=== PATIENT | male | born 1965 | race Caucasian/White ===

== ENCOUNTER 2018-06-23 16:00 | Emergency (ER) | payer BC ==
[~2018-06-23] VITALS: Ht 162.6 cm; Wt 119.7 kg
[2018-06-23 16:08] VITALS: BP 151/78
[2018-06-23] MEDS ORDERED: DIPHTH,PERTUSS(ACELL),TET TOX 0.5 ML DISP.SYRIN. VAX IM ONE (16:15)
--- NOTE | 2018-06-23 16:48 | RAD ---
Left index finger 3 views. HISTORY: Nail through second finger 3 views were taken of the left index finger. There is a nail through the lateral aspect of the proximal phalanx of the index finger. There is a longitudinal fracture involving the lateral cortex of the proximal phalanx of the index finger. IMPRESSION: 1. Fracture proximal phalanx left index finger. Electronically signed by: Phu Mckenzie MD (06/23/2018 4:45 PM) [facility]
--- NOTE | 2018-06-23 17:28 | PHYS DOC ---
Past History Past Medical History: GERD, High Cholesterol, Hypertension Past Surgical History: No Surgical History Alcohol Use: None Drug Use: None Adult General Chief Complaint Chief Complaint: HAND PROBLEM HPI HPI 53-year-old male presents with a nail sticking out of his left index finger. The patient will using a nail gun when it got jammed. While he was attempting to clear the gym the gun went off and shot a nail through his left index finger. There was no bleeding. It happened extremely quickly. The patient pulled mildly on the nail and did not immediately pulled out so he thought he should have it evaluated. The patient does not have any other injuries. His pain is well-controlled at this time. His tetanus is not up-to-date. Review of Systems Review of Systems Constitutional: Denies fever or chills [] Eyes: Denies change in visual acuity, redness, or eye pain [] HENT: Denies nasal congestion or sore throat [] Respiratory: Denies cough or shortness of breath [] Cardiovascular: No additional information not addressed in HPI [] GI: Denies abdominal pain, nausea, vomiting, bloody stools or diarrhea [] : Denies dysuria or hematuria [] Musculoskeletal: Nail through left index finger[] Integument: Denies rash or skin lesions [] Neurologic: Denies headache, focal weakness or sensory changes [] Endocrine: Denies polyuria or polydipsia [] All other systems were reviewed and found to be within normal limits, except as documented in this note. Current Medications Current Medications Current Medications Medications (Trade) Dose Ordered Sig/Harriett Start Time Stop Time Status Last Admin Dose Admin Diphtheria/ Tetanus/Acell Pertussis (Boostrix) 0.5 ml ONCE ONCE 06/23/18 16:15 06/23/18 16:30 DC 06/23/18 16:23 0.5 ML Allergies Allergies Allergies Coded Allergies Type Severity Reaction Last Updated Verified Penicillins Allergy Mild 06/23/18 Yes Physical Exam Physical Exam Constitutional: Well developed, well nourished, no acute distress, non-toxic appearance. [] HENT: Normocephalic, atraumatic, bilateral external ears normal, oropharynx moist, no oral exudates, nose normal. [] Eyes: PERRLA, EOMI, conjunctiva normal, no discharge. [] Neck: Normal range of motion, no tenderness, supple, no stridor. [] Cardiovascular:Heart rate regular rhythm, no murmur [] Lungs & Thorax: Bilateral breath sounds clear to auscultation [] Abdomen: Bowel sounds normal, soft, no tenderness, no masses, no pulsatile masses. [] Skin: Warm, dry, no erythema, no rash. [] Back: No tenderness, no CVA tenderness. [] Extremities: Metal nail passing through the center of the left index finger, no bleeding, mild swelling around the area, neurovascularly intact distal to the foreign body[] Neurologic: Alert and oriented X 3, normal motor function, normal sensory function, no focal deficits noted. [] Psychologic: Affect normal, judgement normal, mood normal. [] Current Patient Data Vital Signs Vital Signs Date Time Temp Pulse Resp B/P (MAP) Pulse Ox O2 Delivery O2 Flow Rate FiO2 06/23/18 16:08 98.3 75 18 98 Room Air EKG EKG [] Radiology/Procedures Radiology/Procedures [] Impressions: Left index finger 3 views. HISTORY: Nail through second finger 3 views were taken of the left index finger. There is a nail through the lateral aspect of the proximal phalanx of the index finger. There is a longitudinal fracture involving the lateral cortex of the proximal phalanx of the index finger. IMPRESSION: 1. Fracture proximal phalanx left index finger. Electronically signed by: Tawnya Mckenzie MD (06/23/2018 4:45 PM) [facility] DICTATED AND SIGNED BY: TAWNYA MCKENZIE MD DATE: 06/23/18 1645 CC: TABITHA CORONA DO; TAWNYA TEMPLE MD ~ Course & Med Decision Making Course & Med Decision Making Pertinent Labs and Imaging studies reviewed. (See chart for details) The patient's x-ray shows the nail does pass through section of the phalanx bone. I discussed the patient with Dr. Musa, orthopedic surgery and he has recommended the patient be transferred to [facility]. The patient was given a tetanus shot in the ED. Dr. Musa wanted to hold off on antibiotics as they would take care of that at the other hospital. The patient will transfer by private vehicle. [] Dragon Disclaimer Dragon Disclaimer This electronic medical record was generated, in whole or in part, using a voice recognition dictation system. Departure Departure: Impression: Primary Impression: Foreign body of left index finger Additional Impression: Fracture of proximal phalanx of left hand Disposition: 02 XFER SHT-TRM HOSP Condition: STABLE Referrals: TAWNYA TEMPLE MD (PCP) Problem Qualifiers Additional Impression: Fracture of proximal phalanx of left hand Fracture type: open Qualified Codes: S62.619B - Displaced fracture of proximal phalanx of unspecified finger, initial encounter for open fracture TABITHA CORONA DO Jun 23, 2018 17:28
== END 2018-06-23 17:12 | disposition short-term general hospital (02) ==
LOC: ER 16:00
DX: S62.611A Displaced fracture of proximal phalanx of left index finger, initial encounter for closed fracture (principal); S60.451A Superficial foreign body of left index finger, initial encounter; K21.9 Gastro-esophageal reflux disease without esophagitis; E78.00 Pure hypercholesterolemia, unspecified; I10 Essential (primary) hypertension; Z88.0 Allergy status to penicillin; W29.4XXA Contact with nail gun, initial encounter; Y93.89 Activity, other specified; Y92.89 Other specified places as the place of occurrence of the external cause; Y99.8 Other external cause status
CPT/HCPCS: 73140; 90471; 90715; 99285